=== PATIENT | male | born 1980 | race Caucasian/White ===

== ENCOUNTER 2017-03-24 07:58 | Emergency (ER) | payer MEDICAID ==
[~2017-03-24] VITALS: Ht 172.7 cm; Wt 77.1 kg
[2017-03-24 08:12] VITALS: BP 121/68
--- NOTE | 2017-03-24 08:15 | NUR ---
PATIENT PRESENTS TO ED WITH UMBILICAL REGION COLIC TYPE PAIN PER PT WITH N/V---DENIES LOOSE/WATERY STOOLS .SKIN IS PINK/WARM/DRY; AAOX4 WITH EVEN AND STEADY GAIT; LUNGS CLEAR BL; HR EVEN AND REGULAR; PT DENIES ANY FEVER, CP, SOB, OR COUGH AT THIS TIME; PATIENT STATES PAIN OF 6/10 AT THIS TIME; VSS; PATIENT POSITIONED FOR COMFORT; HOB ELEVATED; BEDRAILS UP X2; BED DOWN. ER MD MADE AWARE OF PT STATUS.
--- NOTE | 2017-03-24 08:18 | NUR ---
PATIENT TO ER BED 12
--- NOTE | 2017-03-24 08:20 | NUR ---
DR. MCMAHON AT BEDSIDE
[2017-03-24] MEDS ORDERED: ONDANSETRON 4 MG ODT PO ONE (08:30)
[2017-03-24 08:57] VITALS: BP 122/75
--- NOTE | 2017-03-24 08:57 | NUR ---
Patient discharged with v/s stable. Written and verbal after care instructions given and explained. Patient alert, oriented and verbalized understanding of instructions. Ambulatory with steady gait. All questions addressed prior to discharge. ID band removed. Patient advised to follow up with PMD. Rx of ZOFRAN/PEPCID given. Patient educated on indication of medication including possible reaction and side effects. Opportunity to ask questions provided and answered.
== END 2017-03-24 08:57 | disposition home or self-care (01) ==
LOC: MED 07:58
DX: R11.10 Vomiting, unspecified (principal); R10.812 Left upper quadrant abdominal tenderness; R10.811 Right upper quadrant abdominal tenderness; R51 Headache
CPT/HCPCS: 99283; S0119

== ENCOUNTER 2018-07-10 17:25 | Emergency (ER) | payer MEDICAID ==
[~2018-07-10] VITALS: Ht 175.3 cm; Wt 79.4 kg
[2018-07-10 17:38] VITALS: BP 131/71
--- NOTE | 2018-07-10 18:34 | NUR ---
PATIENT AMBULATED TO ER BED 4
--- NOTE | 2018-07-10 18:45 | NUR ---
PT PRESENTED TO THE ED WITH THE CHIEF C/O RIGHT RING FINGER PAIN SINCE 4 DAYS. PER PT, HIS RIGHT HAND HAS BEEN SWOLLEN FOR 4 DAYS AND HAVING PAIN ON THE FINGER SINCE THEN. MOVES FINGER A LITTLE WITH PAIN. + SENSATION, +CIRCULATION. DENIES ANY INJURY. SWOLLEN AND RED FINGER. WARM TO TOUCH. DENIES ANY FEVER. DENIES ANY OTHER PROBLEM AT THIS TIME. STATES PAIN OF 9/10 AT THIS TIME. ER AWARE.
--- NOTE | 2018-07-10 19:08 | NUR ---
REPORT GIVEN TO CAMPUS COORDINATOR RN.
--- NOTE | 2018-07-10 19:08 | NUR ---
RECEIVED REPORT AT BEDSIDE FROM JANES MCGRATH. PT RESTING IN BED, NO SIGNS OF DISTRESS NOTED. VSS.
[2018-07-10] MEDS ORDERED: IBUPROFEN 800 MG TAB PO ONE (19:35)
[2018-07-10 20:11] VITALS: BP 131/77
== END 2018-07-10 20:11 | disposition home or self-care (01) ==
LOC: MED 17:25
DX: S63.619A Unspecified sprain of unspecified finger, initial encounter (principal); X58.XXXA Exposure to other specified factors, initial encounter; Y93.89 Activity, other specified; Y92.89 Other specified places as the place of occurrence of the external cause; Y99.8 Other external cause status
CPT/HCPCS: 29125; 73130; 99283; Q0092

== ENCOUNTER 2020-11-04 01:04 | Emergency (ER) | payer MEDICAID ==
[~2020-11-04] VITALS: Ht 177.8 cm; Wt 74.8 kg
[2020-11-04 01:21] VITALS: BP 135/86
--- NOTE | 2020-11-04 01:22 | NUR ---
To ED bed 08
--- NOTE | 2020-11-04 01:22 | NUR ---
40 YO M BIB SELF WITH C/C OF STABBING R EAR PAIN 9/10 X4DAYS. PT STATES HE HAS GREEN FLUID LEAKING FROM EAR. AREA BEHIND EAR IS INFLAMMED AND TENDER TO TOUCH. PT STATES HE HAS BEEN TAKING IBUPROFEN FOR PAIN WITH SOME RELIEF. PT DENIES FEVER, CHILLS, N/V, AND DIZZINESS. DENIES HAVING MEDICAL HX. BED LOCKED IN LOWEST POSITION, SIDE RAILS X1. NKA
[2020-11-04] MEDS ORDERED: CIPR7.5S OT (01:31)
[2020-11-04] MEDS ORDERED: IBUP-2218 PO (01:37)
[2020-11-04] MEDS ORDERED: ZIPRASIDONE MESYLATE 20 MG/ML VIAL IM ONE (01:40)
[2020-11-04] MEDS ORDERED: IBUPROFEN 800 MG TAB PO ONE (01:40)
[2020-11-04 01:49] VITALS: BP 135/86
--- NOTE | 2020-11-04 01:49 | NUR ---
Patient discharged with v/s stable. Written and verbal after care instructions given and explained. Patient alert, oriented and verbalized understanding of instructions. Ambulatory with steady gait. All questions addressed prior to discharge. ID band removed. Patient advised to follow up with PMD. Rx of IBUPROFEN AND CIPRO given. Patient educated on indication of medication including possible reaction and side effects. Opportunity to ask questions provided and answered.
[2020-11-05] MEDS ORDERED: ZIPRASIDONE MESYLATE 20 MG/ML VIAL IM ONE (20:05)
== END 2020-11-04 01:49 | disposition home or self-care (01) ==
LOC: MED 01:04
DX: H66.91 Otitis media, unspecified, right ear (principal)
CPT/HCPCS: 99283; J3486